=== PATIENT | male | born 1990 | race African-American/Black ===

== ENCOUNTER 2020-09-09 08:30 | Emergency (ER) | payer OTHER ==
[~2020-09-09] VITALS: Ht 172.7 cm; Wt 68.9 kg
--- NOTE | 2020-09-09 09:56 | REP ---
INDICATION: sharp pain and pressure when moving. COMPARISON: None. TECHNIQUE: AP, lateral, bilateral oblique and coned L5-S1 images of the lumbar spine were obtained. FINDINGS: There is maintenance of the normal lumbar lordosis. The intervertebral disc spaces are preserved. There is no evidence of spondylolisthesis or compression fractures. The SI joints are normal. The paravertebral soft tissues are normal. IMPRESSION: Normal lumbar spine. <Electronically signed by Bk Sotelo > 09/09/20 0918
[2020-09-09 10:12] VITALS: BP 132/82
== END 2020-09-09 10:13 | disposition home or self-care (01) ==
LOC: M ED 08:30
DX: M54.5 Low back pain (principal)